=== PATIENT | male | born 1995 | race Hispanic/Latino ===

== ENCOUNTER 2017-03-09 09:16 | Emergency (ER) | payer OTHER ==
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
[2017-03-09 10:23] VITALS: RESP 17; TEMP 98.5
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
[2017-03-09 11:48] VITALS: BP 130/65; PULSE 69; O2SAT 100
== END 2017-03-09 11:56 | disposition home or self-care (01) ==
LOC: ED 09:16
DX: R51 Headache (principal); V49.9XXA Car occupant (driver) (passenger) injured in unspecified traffic accident, initial encounter